=== PATIENT | male | born 1975 | race Hispanic/Latino ===

== ENCOUNTER 2020-09-14 12:47 | Inpatient (IN) | payer SELFPAY ==
[2020-09-14] MEDS ORDERED: METHYLPREDNISOLONE 125 MG INJ ONE (13:55)
[2020-09-14] MEDS ORDERED: NA CHLORIDE 0.9% 1,000 ML ONE (13:55)
[2020-09-14 14:39] LABS: Absolute Lymphocytes (CBC) 0.7 K/uL (0.7-4.9); Basophils % 0.3 % (0-1.3); Hematocrit 46.3 % (39.6-49.0); Lymphocytes % 15.3 % (15.3-44.8); MPV 9.8 fL (7.6-11.3); RBC Red Blood Cell Count 5.32 M/uL (4.33-5.43)
[2020-09-14 14:42] LABS: Protime INR 1.15
[2020-09-14 14:59] LABS: ALT/SGPT 48 U/L (12-78); AST/SGOT 35 U/L (15-37); Albumin 2.9 g/dL (3.4-5.0); Alkaline Phosphatase 58 U/L (45-117); BUN Blood Urea Nitrogen 12 mg/dL (7-18); Bicarbonate 22 mmol/L (21-32); Bilirubin Direct 0.3 mg/dL (0-0.2); Bilirubin Total 0.7 mg/dL (0.2-1.0); Ferritin 948.7 ng/mL (26-388); Glucose Level 197 mg/dL (74-106); Lipase 127 U/L (73-393); Potassium 3.7 mmol/L (3.5-5.1); Protein, Total 7.7 g/dL (6.4-8.2); Sodium Level 134 mmol/L (136-145); Troponin (Emerg Dept Use Only) < 0.02 ng/mL (0.0-0.045)
--- NOTE | 2020-09-14 15:03 | RAD REPORT ---
EXAM DESCRIPTION: RAD - Chest Single View - 09/14/2020 2:09 pm CLINICAL HISTORY: DYSPNEA Chest pain. COMPARISON: No comparisons FINDINGS: Portable technique limits examination quality. The lungs are underinflated with atelectasis in both lung bases. Mild linear opacities are probably a lso present bilaterally. The heart is normal in size. No displaced fractures. IMPRESSION: Underinflated lungs.
--- NOTE | 2020-09-14 15:50 | RAD REPORT ---
EXAM DESCRIPTION: CT - Chest For Pe Angio - 09/14/2020 3:39 pm CLINICAL HISTORY: Chest pain. DYSPNEA COMPARISON: <Comparisons> TECHNIQUE: CT angiogram of the pulmonary arteries was performed with MIP. All CT scans are performed using dose optimization technique as appropriate and may include automated exposure control or mA/KV adjustment according to patient size. FINDINGS: No evidence of pulmonary thromboembolism. No acute aortic finding demonstrated. Bilateral ground-glass and alveolar opacities are present throughout both lungs, greatest in the post erior lung bases. No significant pericardial or pleural fluid. No concerning bony finding. Advanced fatty liver. IMPRESSION: No evidence of pulmonary thromboembolism. Multifocal bilateral infiltrate pattern, greatest in the posterior gutters. This likely indicates pul monary infection.
--- NOTE | 2020-09-14 16:25 | ER ---
Nurse's Notes [facility] Name: Ritesh West Age: 45 yrs Sex: Male : 1975 Arrival Date: 09/14/2020 Time: 12:49 Bed 16 Private MD: Diagnosis: Hypoxia;Viral pneumonia, unspecified Presentation: 09/14 13:08 Chief complaint: Patient states: Onset 09/08/2020. Feels weak, cough, congestion, no ca1 appetite, diarrhea, body aches. Denies fever. SOB started 2 days [employer] READ[employer], getting worse. Coronavirus screen: Client denies travel out of the [place] in the last 14 days. congestion, cough unrelated to allergies, diarrhea, fatigue, Client presents with at least one sign or symptom that may indicate coronavirus-19. Standard/surgical mask placed on the client. Provider contacted for isolation considerations. Client reports previous positive COVID test result. Date of collection: September 13, 2020 Staff notified of need for isolation. Ebola Screen: Patient negative for fever greater than or equal to 101.5 degrees Fahrenheit, and additional compatible Ebola Virus Disease symptoms Patient denies exposure to infectious person. Patient denies travel to an Ebola-affected area in the 21 days before illness onset. No symptoms or risks identified at this time. Initial Sepsis Screen: Does the patient meet any 2 criteria? No. Patient's initial sepsis screen is negative. Does the patient have a suspected source of infection? No. Patient's initial sepsis screen is negative. Risk Assessment: Do you want to hurt yourself or someone else? Patient reports no desire to harm self or others. Onset of symptoms was September 08, 2020. 13:08 Method Of Arrival: Ambulatory ca1 13:08 Acuity: MIGUEL 2 ca1 Historical: - Allergies: 13:12 No Known Allergies; ca1 - Home Meds: 13:12 Metformin Oral [Active]; ca1 - PMHx: 13:12 Diabetes - NIDDM; ca1 - PSHx: 13:12 None; ca1 - Immunization history:: Flu vaccine is not up to date. - Social history:: Smoking status: Patient reports the use of cigarette tobacco products, denies chronic smoking, but will smoke occasionally. Screenin:03 Abuse screen: Denies threats or abuse. Denies injuries from another. Nutritional zb screening: No deficits noted. Tuberculosis screening: No symptoms or risk factors identified. Fall Risk None identified. Assessment: 14:00 General: Appears in no apparent distress. uncomfortable, Behavior is calm, cooperative, zb appropriate for age, Reports fever for > 3 days, feeling ill for > 3 days, fatigue for >3 days. Pain: Denies pain. Neuro: Level of Consciousness is awake, alert, obeys commands, Oriented to person, place, time, situation. Cardiovascular: Capillary refill < 3 seconds in bilateral fingers Patient's skin is warm and dry. Respiratory: Airway is patent Respiratory effort is labored, shallow, Respiratory pattern is tachypnea. Respiratory: Reports shortness of breath at rest cough that is dry, persistent Breath sounds with crackles in left posterior lower lobe and right posterior lower lobe Breath sounds are diminished in left posterior upper lobe, right posterior upper lobe, left posterior lower lobe and right posterior middle lobe Onset: The symptoms/episode began/occurred x 4 days , the patient has moderate shortness of breath. GI: Abdomen is obese, Bowel sounds present X 4 quads. : No signs and/or symptoms were reported regarding the genitourinary system. EENT: No signs and/or symptoms were reported regarding the EENT system. Derm: Skin is intact, is healthy with good turgor, Skin is dry, Skin is normal, Skin temperature is warm. Musculoskeletal: Range of motion:. 15:00 Reassessment: Patient appears in no apparent distress at this time. Patient and/or zb family updated on plan of care and expected duration. Pain level reassessed. Patient is alert, oriented x 3, equal unlabored respirations, skin warm/dry/pink. patient states he is still having moments of SOB. patient appears to be doing a little better. 15:26 Reassessment: pt taken to CT. zb 16:00 Reassessment: Patient appears in no apparent distress at this time. Patient and/or zb family updated on plan of care and expected duration. Pain level reassessed. no changes at this time. 17:16 Reassessment: Patient appears in no apparent distress at this time. Patient and/or zb family updated on plan of care and expected duration. Pain level reassessed. notified patient that he is getting admitted up stairs. Vital Signs: 13:08 BP 140 / 66; Pulse 136; Resp 18 S; Temp 98.4(TE); Pulse Ox 93% on R/A; Weight 131.54 kg ca1 (R); Height 5 ft. 10 in. (177.80 cm) (R); Pain 10/10; 14:02 BP 141 / 78; Pulse 122; Resp 23; Pulse Ox 91% on 2 lpm NC; Pain 0/10; zb 15:13 BP 129 / 65; Pulse 115; Resp 20; Pulse Ox 94% on 2 lpm NC; zb 16:45 Pulse 108; Resp 25; Pulse Ox 94% 2 lpm ; zb 17:16 BP 107 / 73; Pulse 110; Resp 26; Pulse Ox 94% 2 lpm ; zb 13:08 Body Mass Index 41.61 (131.54 kg, 177.80 cm) ca1 ED Course: 12:49 Patient arrived in ED. as 13:12 Triage completed. ca1 13:12 Arm band placed on right wrist. ca1 13:24 Cathryn Sung FNP-C is PHCP. kb 13:24 Alexandr Allen MD is Attending Physician. kb 13:35 Taryn Franz, DEIDRA is Primary Nurse. zb 14:03 Inserted saline lock: 20 gauge in right antecubital area, using aseptic technique. zb Blood collected. 14:06 CXR XRAY In Process Unspecified. EDMS 15:39 CT Chest For PE Angio In Process Unspecified. EDMS 16:23 Ross Nguyen MD is Hospitalizing Provider. kb 17:32 No provider procedures requiring assistance completed. Patient admitted, IV remains in zb place. 17:33 Patient has correct armband on for positive identification. Placed in gown. Bed in low zb position. Administered Medications: 14:00 Drug: SOLU-Medrol 125 mg Route: IVP; Site: left antecubital; zb 14:30 Follow up: Response: No adverse reaction; Marked relief of symptoms zb 14:00 Drug: NS 0.9% 1000 ml Route: IV; Rate: 1000 ml; Site: left antecubital; zb 23:58 Follow up: Response: No adverse reaction; Marked relief of symptoms; IV Status: zb Completed infusion; IV Intake: 1500ml Intake: 23:58 IV: 1500ml; Total: 1500ml. zb Outcome: 16:23 Decision to Hospitalize by Provider. kb 17:32 Admitted to Med/surg accompanied by tech, via stretcher, room 409, Report called to dorita GIBSON. DEIDRA 17:32 Condition: stable 17:32 Instructed on the need for admit, Demonstrated understanding of instructions, follow-up care. 18:34 Patient left the ED. dorita Signatures: Dispatcher [employer] EDMS Cathryn Sung, TEGAN-David JAVED-Pauline Gaston as Sully, Roseanne, RN Taryn Mir RN RN zb
--- NOTE | 2020-09-14 16:25 | EDPHYS ---
Physician Documentation [facility] Name: Ritesh West Age: 45 yrs Sex: Male : 1975 Arrival Date: 09/14/2020 Time: 12:49 Bed 16 Private MD: ED Physician Alexandr Allen HPI: 09/14 16:02 This 45 yrs old Male presents to ER via Ambulatory with complaints of kb Decreased Appetite, Diarrhea, Abdominal Cramping, Shortness Of Breath - covid+. 16:02 The patient or guardian reports cough, that is intermittent, described as moderate, kb difficulty breathing, flu symptoms, myalgias, no appetite. Onset: The symptoms/episode began/occurred 5 day(s) ago. Severity of symptoms: At their worst the symptoms were moderate, in the emergency department the symptoms are unchanged. Modifying factors: The symptoms are alleviated by nothing, the symptoms are aggravated by exertion. Associated signs and symptoms: Pertinent positives: diarrhea. The patient has not experienced similar symptoms in the past. The patient has not recently seen a physician. Pt tested positive for covid yesterday. Has been having symptoms for 5 days. Bodyaches, shortness of breath, cough, diarrhea. Dyspnea getting worse. Historical: - Allergies: 13:12 No Known Allergies; ca1 - Home Meds: 13:12 Metformin Oral [Active]; ca1 - PMHx: 13:12 Diabetes - NIDDM; ca1 - PSHx: 13:12 None; ca1 - Immunization history:: Flu vaccine is not up to date. - Social history:: Smoking status: Patient reports the use of cigarette tobacco products, denies chronic smoking, but will smoke occasionally. ROS: 14:40 Cardiovascular: Negative for chest pain, palpitations, and edema, Back: Negative for kb injury and pain, MS/Extremity: Negative for injury and deformity, Skin: Negative for injury, rash, and discoloration. 14:40 Constitutional: Positive for body aches, fatigue, malaise. 14:40 Respiratory: Positive for cough, dyspnea on exertion, shortness of breath. 14:40 Abdomen/GI: Positive for diarrhea. 14:40 Neuro: Positive for headache. Exam: 13:30 Constitutional: This is a well developed, well nourished patient who is awake, alert, kb and in no acute distress. Head/Face: Normocephalic, atraumatic. Abdomen/GI: Soft, non-tender. No distention Skin: Warm, dry with normal turgor. Normal color. MS/ Extremity: Pulses equal, no cyanosis. Neurovascular intact. Full, normal range of motion. Neuro: Awake and alert, GCS 15, oriented to person, place, time, and situation. Moves all extremities. Normal gait. 13:30 Cardiovascular: Rate: tachycardic, Rhythm: regular, Pulses: no pulse deficits are appreciated, Heart sounds: normal. 13:30 ECG was reviewed by the Attending Physician. 13:30 Respiratory: mild respiratory distress is noted, Respirations: labored breathing, that is mild, Breath sounds: are clear throughout. Vital Signs: 13:08 BP 140 / 66; Pulse 136; Resp 18 S; Temp 98.4(TE); Pulse Ox 93% on R/A; Weight 131.54 kg ca1 (R); Height 5 ft. 10 in. (177.80 cm) (R); Pain 10/10; 14:02 BP 141 / 78; Pulse 122; Resp 23; Pulse Ox 91% on 2 lpm NC; Pain 0/10; zb 15:13 BP 129 / 65; Pulse 115; Resp 20; Pulse Ox 94% on 2 lpm NC; zb 16:45 Pulse 108; Resp 25; Pulse Ox 94% 2 lpm ; zb 17:16 BP 107 / 73; Pulse 110; Resp 26; Pulse Ox 94% 2 lpm ; zb 13:08 Body Mass Index 41.61 (131.54 kg, 177.80 cm) ca1 MDM: 13:24 Patient medically screened. kb 14:52 Data reviewed: vital signs, nurses notes. Data interpreted: Pulse oximetry: on room air kb is 92 %. Interpretation: borderline. 16:01 Counseling: I had a detailed discussion with the patient and/or guardian regarding: the kb historical points, exam findings, and any diagnostic results supporting the discharge/admit diagnosis, lab results, radiology results, the need for further work-up and treatment in the hospital. Physician consultation: Ross Nguyen MD was contacted at 16:02, regarding admission, to the medical/surgical unit. patient's condition, and will see patient in ED, shortly. ED course: Pt oxygen sat 88-91% on room air, 95% on 2L with decreased work of breathing. 09/14 13:30 Order name: Blood Culture Adult (2) kb 09/14 13:30 Order name: BMP kb 09/14 13:30 Order name: C-Reactive Protein kb 09/14 13:30 Order name: CBC with Diff kb 09/14 13:30 Order name: D-Dimer kb 09/14 13:30 Order name: Ferritin; Complete Time: 15:01 kb 09/14 13:30 Order name: Lactate; Complete Time: 15:01 kb 09/14 13:30 Order name: LFT's; Complete Time: 15:01 kb 09/14 13:30 Order name: Lipase; Complete Time: 15:01 kb 09/14 13:30 Order name: Procalcitonin; Complete Time: 14:54 kb 09/14 13:30 Order name: PT-INR; Complete Time: 14:56 kb 09/14 13:30 Order name: Ptt, Activated; Complete Time: 14:56 kb 09/14 13:30 Order name: Troponin (emerg Dept Use Only); Complete Time: 15:01 kb 09/14 13:31 Order name: Blood Culture EDMS 09/14 13:30 Order name: CXR XRAY; Complete Time: 15:05 kb 09/14 13:30 Order name: EKG; Complete Time: 13:31 kb 09/14 13:30 Order name: Cardiac monitoring; Complete Time: 14:32 kb 09/14 13:30 Order name: Droplet/Contact Precautions; Complete Time: 13:35 kb 09/14 13:30 Order name: EKG - Nurse/Tech; Complete Time: 14:25 kb 09/14 13:30 Order name: IV Start; Complete Time: 14:02 kb 09/14 13:30 Order name: Labs collected and sent; Complete Time: 14:02 kb 09/14 13:30 Order name: O2 Per Protocol; Complete Time: 14:02 kb 09/14 13:31 Order name: Basic Metabolic Panel; Complete Time: 15:01 EDMS 09/14 13:31 Order name: C-Reactive Protein; Complete Time: 15:01 EDMS 09/14 13:31 Order name: CBC with Automated Diff; Complete Time: 14:54 EDMS 09/14 13:31 Order name: D-Dimer; Complete Time: 14:56 EDMS 09/14 14:54 Order name: CT Chest For PE Angio; Complete Time: 15:57 kb 09/14 16:53 Order name: CONS Physician Consult EDRI 09/14 13:30 Order name: O2 Sat Monitoring; Complete Time: 14:02 kb EC:30 Rate is 124 beats/min. Rhythm is regular. QRS [place] is Normal. [place] interval is normal at kb 146 msec. QRS interval is normal at 76 msec. QT interval is normal at 302 msec. Administered Medications: 14:00 Drug: SOLU-Medrol 125 mg Route: IVP; Site: left antecubital; zb 14:30 Follow up: Response: No adverse reaction; Marked relief of symptoms zb 14:00 Drug: NS 0.9% 1000 ml Route: IV; Rate: 1000 ml; Site: left antecubital; zb 23:58 Follow up: Response: No adverse reaction; Marked relief of symptoms; IV Status: zb Completed infusion; IV Intake: 1500ml Disposition: 09/15 01:16 Co-signature as Attending Physician, Alexandr Allen MD I agree with the assessment and [facility] plan of care. Disposition: 09/14/20 16:23 Hospitalization ordered by Ross Nguyen for Observation. Preliminary diagnosis are Hypoxia, Viral pneumonia, unspecified. - Bed requested for Telemetry/MedSurg (observation). - Status is Observation. zb - Condition is Stable. - Problem is new. - Symptoms are unchanged. Signatures: Dispatcher [employer] EDRI Cathryn Sung, LETTER SORTING MACHINE OPERATOR-C LETTER SORTING MACHINE OPERATOR-Ckb Alexandr Allen MD MD cha Botello, Elizabeth Roseanne Virk RN RN ca1 Brown, Zipporah, RN RN zb Corrections: (The following items were deleted from the chart) 09/14 17:09 16:23 Hospitalization Ordered by Ross Nguyen MD for Observation. Preliminary eb diagnosis is Hypoxia; Viral pneumonia, unspecified. Bed requested for Telemetry/MedSurg (observation). Status is Observation. Condition is Stable. Problem is new. Symptoms are unchanged. kb 18:34 17:09 09/14/2020 16:23 Hospitalization Ordered by Ross Nguyen MD for Observation. zb Preliminary diagnosis is Hypoxia; Viral pneumonia, unspecified. Bed requested for Telemetry/MedSurg (observation). Status is Observation. Condition is Stable. Problem is new. Symptoms are unchanged. eb
--- NOTE | 2020-09-14 17:04 | P.HP ---
Certification for Inpatient Patient admitted to: Inpatient With expected LOS: >2 Midnights Practitioner: I am a practitioner with admitting privileges, knowledge of patient current condition, hospital course, and medical plan of care. Services: Services provided to patient in accordance with Admission requirements found in Title 42 Section 412.3 of the Code of Federal Regulations Patient History Date of Service: 09/14/20 Reason for admission: Hypoxia, COVID-19 pneumonia History of Present Illness: 45yo M, PMH: NIDDM2, presents with 5 days of progressively worsening SOB. Tested positive for COVID-19 yesterday. Associated with anorexia, diarrhea, nausea. Denies chest pain, no fever/chills, no lower extremity edema, no rash. multiple family members recently tested positive as well. In the ED, he was noted to be hypoxic to 80s on room air, tachypneic, tachycardic, and given steroids. Found to have elevated CRP, ferritin, and d-dimer. CT consistent with COVID pneumonia. Allergies No Known Allergies Allergy (Unverified 12/16/11 13:58) - Past Medical/Surgical History -: NIDDM2 Past Surgical History: Patient denies surgical history - Family History Mother -: Diabetes - Social History Smoking Status: Current some day smoker Place of Residence: Home Review of Systems 10-point ROS is otherwise unremarkable Physical Examination - Studies Laboratory Data (last 24 hrs) 09/14/20 13:56: PT 13.3 H, INR 1.15, APTT 28.2 09/14/20 13:56: WBC 4.40, Hgb 16.0, Hct 46.3, Plt Count 129 L 09/14/20 13:56: Sodium 134 L, Potassium 3.7, BUN 12, Creatinine 0.82, Glucose 197 H, Total Bilirubin 0.7, AST 35, ALT 48, Alkaline Phosphatase 58, Lipase 127 Assessment and Plan - Advance Directives Does patient have a Living Will: No Does patient have a Durable POA for Healthcare: No Physician Review Additional Text: Physical Exam: Gen: mild distress HEENT: normal conjunctiva, sclera anicteric CV: sinus tachycardia, no murmur Pulm: bilateral crackles at bases, diminished air entry, on 3L NC, mild labored, shallow respirations Abd: soft, NTND Ext: no edema, no rash Neuro: AAOx3, moves all extremities Problem List: Acute hypoxemic respiratory failure secondary to COVID-19 pneumonia NIDDM2 -admit, wean o2 as needed -IV steroids, vitamin supplementation -lovenox for VTE prophylaxis -insulin sliding scale, will likely need long-acting, check A1c -pulm consulted -daily RA sats VTE: lovenox Code: full Dispo: anticipate dc home in ~2 days, will likely need home O2 Time Spent Managing Pts Care (In Minutes): 60
[2020-09-14] MEDS ORDERED: ONDANSETRON 4 MG/2 ML VIAL IV PRN (20:10)
[2020-09-14] MEDS ORDERED: GLUCAGON 1 MG/VIAL IM PRN (20:10)
[2020-09-14] MEDS ORDERED: D50W 25 GM/50 ML SYRINGE IV PRN (20:10)
[2020-09-14] MEDS ORDERED: FAMOTIDINE 20 MG/2 ML VIAL IV SCH (21:00)
[2020-09-14] MEDS: INSULIN -REGULAR HUMAN 50 UNIT/0.5 ML ML SQ SCH (22:21)
[2020-09-14] MEDS: METHYLPREDNISOLONE 40 MG INJ IV SCH (22:21)
[2020-09-14] MEDS ORDERED: ACETAMINOPHEN 500 MG TAB PO PRN (22:34)
[2020-09-14] MEDS: BENZONATATE 100 MG CAP PO PRN (23:10)
[2020-09-15 03:04] VITALS: BMI 41.5
[2020-09-15 06:54] LABS: Absolute Lymphocytes (CBC) 0.8 K/uL (0.7-4.9); Basophils % 0.2 % (0-1.3); Hematocrit 43.8 % (39.6-49.0); MPV 9.6 fL (7.6-11.3); RBC Red Blood Cell Count 5.03 M/uL (4.33-5.43)
[2020-09-15] MEDS: FAMOTIDINE 20 MG TAB PO SCH ×2 (08:12→21:46)
[2020-09-15] MEDS: VITAMIN D 1000 UNIT TAB PO SCH (08:14)
[2020-09-15] MEDS: METHYLPREDNISOLONE 40 MG INJ IV SCH ×2 (08:15→21:46)
[2020-09-15] MEDS: ASCORBIC ACID 500 MG TABLET PO SCH ×4 (08:16→21:46)
[2020-09-15] MEDS: INSULIN -REGULAR HUMAN 50 UNIT/0.5 ML ML SQ SCH ×4 (08:17→21:45)
[2020-09-15] MEDS: ZINC SULFATE 220 MG CAP PO SCH (08:19)
[2020-09-15] MEDS: THIAMINE 200 MG/2 ML INJ IVP SCH ×2 (08:19→21:46)
[2020-09-15 08:49] LABS: ALT/SGPT 47 U/L (12-78); AST/SGOT 31 U/L (15-37); Albumin 2.8 g/dL (3.4-5.0); Alkaline Phosphatase 57 U/L (45-117); BUN Blood Urea Nitrogen 14 mg/dL (7-18); Bicarbonate 20 mmol/L (21-32); Bilirubin Total 0.6 mg/dL (0.2-1.0); Ferritin 908.2 ng/mL (26-388); Glucose Level 222 mg/dL (74-106); Magnesium 2.3 mg/dL (1.8-2.4); Potassium 4.1 mmol/L (3.5-5.1); Protein, Total 7.4 g/dL (6.4-8.2); Sodium Level 138 mmol/L (136-145)
[2020-09-15] MEDS ORDERED: ZINC SULFATE 220 MG CAP PO SCH (09:00)
[2020-09-15] MEDS ORDERED: ENOXAPARIN 40 MG/0.4 ML SQ SCH ×2 (09:00→21:00)
--- NOTE | 2020-09-15 12:15 | P.CNS ---
Date of Consult: 09/15/20 Reason for Consult: The a from downey virus Chief Complaint: Hypoxia, COVID-19 pneumonia History of Present Illness: Patient is 45 years of age has been sick for about a week admitted to the hospital with progressive dyspnea as so she was anorexia diarrhea eyes any fever and chills he just felt that currently stable Allergies No Known Allergies Allergy (Verified 09/15/20 03:12) Home Medications: Metformin ER [Glucophage ER*] 1,000 mg PO DAILY 09/15/20 - Past Medical/Surgical History Diabetic: Yes -: NIDDM2 - Family History Mother Medical History: Diabetes - Social History Smoking Status: Current some day smoker Alcohol use: Yes CD- Drugs: No Caffeine use: Yes Place of Residence: Home Review of Systems General: Weakness Respiratory: Cough, Shortness of Breath Physical Examination Temp Pulse Resp BP Pulse Ox 97.4 F 84 24 H 132/79 93 09/15/20 08:00 09/15/20 08:00 09/15/20 08:00 09/15/20 08:00 09/15/20 08:00 Laboratory Data (last 24 hrs) 09/14/20 13:56: PT 13.3 H, INR 1.15, APTT 28.2 09/14/20 13:56: WBC 4.40, Hgb 16.0, Hct 46.3, Plt Count 129 L 09/14/20 13:56: Sodium 134 L, Potassium 3.7, BUN 12, Creatinine 0.82, Glucose 197 H, Total Bilirubin 0.7, AST 35, ALT 48, Alkaline Phosphatase 58, Lipase 127 - Problems (1) Acute respiratory failure due to severe acute respiratory syndrome coronavirus 2 (SARS-CoV-2) infection Current Visit: Yes Status: Acute Plan: Patient is 45 years of age admitted with respiratory failure from downey virus an is a little hypoxic on 3 L of nasal cannula oxygen diminished lung volumes agrees little elevate increase Lovenox to 40 b.i.d. she is stable
[2020-09-15] MEDS ORDERED: Remdesivir 200 MG in NA CHLORIDE 0.9% 250 ML IV ONE (14:00)
[2020-09-15] MEDS ORDERED: D50W 25 GM/50 ML VIAL IV PRN (14:00)
[2020-09-15] MEDS: BENZONATATE 100 MG CAP PO PRN (14:57)
--- NOTE | 2020-09-15 15:23 | P.PN ---
Subjective Date of Service: 09/15/20 Chief Complaint: Hypoxia, COVID-19 pneumonia Subjective: No new changes (Reports he feels about the same as yesterday. Dyspnea on exertion, fatigue, low appetite.) Review of Systems 10-point ROS is otherwise unremarkable Physical Examination - Vital Signs Temperature: 98 F Blood Pressure: 131/85 Pulse: 78 Respirations: 26 Pulse Ox (%): 93 Assessment & Plan Physician Review Additional Text: Physical Exam: Gen: NAD HEENT: normal conjunctiva, sclera anicteric CV: sinus tachycardia, no murmur Pulm: bilateral crackles at bases, diminished air entry, on 2L NC, shallow respirations Abd: soft, NTND Ext: no edema, no rash Neuro: AAOx3, moves all extremities Problem List: Acute hypoxemic respiratory failure secondary to COVID-19 pneumonia NIDDM2 -wean o2 as needed -IV steroids, vitamin supplementation -lovenox for VTE prophylaxis -insulin sliding scale, will likely need long-acting, check A1c -pulm consulted, started remdesevir -daily RA sats -ferritin CRP elevated, very mild improvement VTE: lovenox Code: full Dispo: anticipate dc home in 24-48hrs, will need home O2 Time Spent Managing Pts Care (In Minutes): 35
[2020-09-15] MEDS ORDERED: PNEUMOCOCCAL VACCINE 0.5 ML IMVAC ONE (18:00)
[2020-09-15] MEDS ORDERED: INFLUENZA VACCINE (for 3y+) 0.5 ML DOSE IMVAC ONE (18:00)
[2020-09-15] MEDS ORDERED: D50W 25 GM/50 ML SYRINGE IV PRN (22:27)
[2020-09-16] MEDS: BENZONATATE 100 MG CAP PO PRN ×2 (00:12→08:01)
[2020-09-16 03:54] LABS: Absolute Lymphocytes (CBC) 0.7 K/uL (0.7-4.9); Hematocrit 43.6 % (39.6-49.0); Lymphocytes % 11.2 % (15.3-44.8); MPV 9.6 fL (7.6-11.3); RBC Red Blood Cell Count 5.03 M/uL (4.33-5.43)
[2020-09-16 04:24] LABS: ALT/SGPT 39 U/L (12-78); AST/SGOT 22 U/L (15-37); Albumin 2.8 g/dL (3.4-5.0); Alkaline Phosphatase 59 U/L (45-117); BUN Blood Urea Nitrogen 17 mg/dL (7-18); Bicarbonate 28 mmol/L (21-32); Bilirubin Total 0.5 mg/dL (0.2-1.0); Ferritin 889.7 ng/mL (26-388); Glucose Level 226 mg/dL (74-106); Magnesium 2.5 mg/dL (1.8-2.4); Potassium 4.3 mmol/L (3.5-5.1); Protein, Total 7.4 g/dL (6.4-8.2); Sodium Level 140 mmol/L (136-145)
[2020-09-16] MEDS: ASCORBIC ACID 500 MG TABLET PO SCH ×4 (08:03→20:36)
[2020-09-16] MEDS: FAMOTIDINE 20 MG TAB PO SCH ×2 (08:04→20:35)
[2020-09-16] MEDS: ZINC SULFATE 220 MG CAP PO SCH (08:05)
[2020-09-16] MEDS: VITAMIN D 1000 UNIT TAB PO SCH (08:05)
[2020-09-16] MEDS: METHYLPREDNISOLONE 40 MG INJ IV SCH ×2 (08:06→20:35)
[2020-09-16] MEDS: INSULIN -REGULAR HUMAN 50 UNIT/0.5 ML ML SQ SCH ×4 (08:07→20:36)
[2020-09-16] MEDS: INSULIN 70/30 100 UNITS/ML SQ SCH ×2 (08:07→16:00)
[2020-09-16] MEDS: APIXABAN 5 MG TABLET PO SCH ×2 (08:08→20:36)
[2020-09-16] MEDS: THIAMINE 200 MG/2 ML INJ IVP SCH ×2 (08:13→20:36)
[2020-09-16] MEDS: Remdesivir 100 MG in NA CHLORIDE 0.9% 250 ML IV SCH (09:15)
--- NOTE | 2020-09-16 16:59 | P.PN ---
Subjective Date of Service: 09/16/20 Chief Complaint: Hypoxia, COVID-19 pneumonia Subjective: Worsening (Hypoxia worsened, now requiring 4 L nasal cannula, with dyspnea on exertion, appetite slightly improved) Review of Systems 10-point ROS is otherwise unremarkable Physical Examination - Vital Signs Temperature: 96.4 F Blood Pressure: 124/87 Pulse: 83 Respirations: 20 Pulse Ox (%): 96 Assessment & Plan Physician Review Additional Text: Physical Exam: Gen: NAD HEENT: normal conjunctiva, sclera anicteric CV: Regular rate and rhythm, no murmur Pulm: bilateral crackles at bases, diminished air entry, on 4L NC, shallow respirations Abd: soft, NTND Ext: no edema, no rash Problem List: Acute hypoxemic respiratory failure secondary to COVID-19 pneumonia NIDDM2 -with steroid induced (worsening) hyperglycemia -wean o2 as needed -IV steroids, vitamin supplementation -eliquis -insulin sliding scale, long acting ordered, A1c >10, will likely need insulin on discharge -pulm consulted, continue remdesevir -daily RA sats -ferritin CRP elevated, very mild improvement VTE: eliquis Code: full Dispo: anticipate dc home in ~24, CM consulted for home O2 Given worsening of hypoxia will likely need to stay in the hospital today. Time Spent Managing Pts Care (In Minutes): 35
[2020-09-17 04:06] LABS: Absolute Lymphocytes (CBC) 0.7 K/uL (0.7-4.9); Hematocrit 42.5 % (39.6-49.0); Lymphocytes % 11.6 % (15.3-44.8); MPV 9.7 fL (7.6-11.3); RBC Red Blood Cell Count 4.82 M/uL (4.33-5.43)
[2020-09-17 04:23] LABS: ALT/SGPT 34 U/L (12-78); AST/SGOT 18 U/L (15-37); Albumin 2.7 g/dL (3.4-5.0); Alkaline Phosphatase 55 U/L (45-117); BUN Blood Urea Nitrogen 17 mg/dL (7-18); Bicarbonate 31 mmol/L (21-32); Bilirubin Total 0.4 mg/dL (0.2-1.0); Ferritin 813.3 ng/mL (26-388); Glucose Level 240 mg/dL (74-106); Magnesium 2.6 mg/dL (1.8-2.4); Potassium 4.2 mmol/L (3.5-5.1); Protein, Total 6.8 g/dL (6.4-8.2); Sodium Level 140 mmol/L (136-145)
[2020-09-17] MEDS: VITAMIN D 1000 UNIT TAB PO SCH (08:53)
[2020-09-17] MEDS: THIAMINE 200 MG/2 ML INJ IVP SCH ×2 (08:53→21:51)
[2020-09-17] MEDS: METHYLPREDNISOLONE 40 MG INJ IV SCH ×2 (08:53→21:52)
[2020-09-17] MEDS: ZINC SULFATE 220 MG CAP PO SCH (08:54)
[2020-09-17] MEDS: FAMOTIDINE 20 MG TAB PO SCH ×2 (08:54→21:53)
[2020-09-17] MEDS: ASCORBIC ACID 500 MG TABLET PO SCH ×4 (08:54→21:53)
[2020-09-17] MEDS: APIXABAN 5 MG TABLET PO SCH ×2 (08:54→21:53)
[2020-09-17] MEDS: INSULIN -REGULAR HUMAN 50 UNIT/0.5 ML ML SQ SCH ×4 (08:54→21:53)
[2020-09-17] MEDS: INSULIN 70/30 100 UNITS/ML SQ SCH ×2 (08:55→16:30)
[2020-09-17] MEDS: Remdesivir 100 MG in NA CHLORIDE 0.9% 250 ML IV SCH (09:06)
[2020-09-18] MEDS: ZINC SULFATE 220 MG CAP PO SCH (08:40)
[2020-09-18] MEDS: VITAMIN D 1000 UNIT TAB PO SCH (08:41)
[2020-09-18] MEDS: APIXABAN 5 MG TABLET PO SCH (08:41)
[2020-09-18] MEDS: METHYLPREDNISOLONE 40 MG INJ IV SCH (08:41)
[2020-09-18] MEDS: INSULIN -REGULAR HUMAN 50 UNIT/0.5 ML ML SQ SCH ×3 (08:41→16:37)
[2020-09-18] MEDS: ASCORBIC ACID 500 MG TABLET PO SCH ×3 (08:41→16:38)
[2020-09-18] MEDS: THIAMINE 200 MG/2 ML INJ IVP SCH (08:41)
[2020-09-18] MEDS: FAMOTIDINE 20 MG TAB PO SCH (08:41)
[2020-09-18] MEDS: INSULIN 70/30 100 UNITS/ML SQ SCH ×2 (08:42→16:38)
[2020-09-18] MEDS: Remdesivir 100 MG in NA CHLORIDE 0.9% 250 ML IV SCH (09:32)
--- NOTE | 2020-09-18 12:37 | P.PN ---
Subjective Date of Service: 09/18/20 Chief Complaint: Hypoxia, COVID-19 pneumonia Subjective: Improving (Patient is doing much better stable on 4 L of nasal cannula oxygen) Review of Systems General: Weakness Respiratory: Shortness of Breath Physical Examination - Vital Signs Temperature: 96.9 F Blood Pressure: 118/76 Pulse: 84 Respirations: 20 Pulse Ox (%): 90 Assessment & Plan - Problems (Diagnosis) (1) Acute respiratory failure due to severe acute respiratory syndrome coronavirus 2 (SARS-CoV-2) infection Current Visit: Yes Status: Acute Plan: Patient admitted with coronavirus pneumonia is much better plan to discharge him on but is on 20 mg twice a day for a week blood sugars are elevated given him another dose of ivermectin Discharge Plan: Home Plan to discharge in: 24 Hours
[2020-09-18] MEDS ORDERED: IVERMECTIN 3 MG TABLET PO ONE (12:45)
[2020-09-18 16:02] VITALS: O2SAT 95
[2020-09-18 16:54] VITALS: BP 120/72; TEMP 96.8
--- NOTE | 2020-09-18 16:58 | P.DS ---
Admission Date: 09/14/20 Discharge Date: 09/18/20 Disposition: ROUTINE DISCHARGE Discharge Condition: FAIR Reason for Admission: Hypoxia, COVID-19 pneumonia Consultations: Pulmonary-Dr. Kaplan Brief History of Present Illness: 45-year-old gentleman with a history of [id number] diabetes presented to the emergency department with a 5 day history of progressive shortness of breath and cough. Patient tested positive for COVID 19 the day before presentation. He reported multiple family members tested positive for the COVID 19. Chest x-ray done in the emergency department demonstrated findings suggestive of COVID pneumonia. Patient was saturating at 80% on room air. He was placed on oxygen by nasal cannula and admitted for further management. Hospital Course: Patient admitted to the medical floor and treated with IV steroids, vitamin D, vitamin-C and zinc supplementation. He was also given a dose of Ivermectin. Patient respiratory condition was stable on oxygen by nasal cannula. He was tolerating 2 L with good oxygen saturation. Patient deemed clinically stable for discharge. He is discharged with prednisone and vitamin supplementation. He will follow with Dr. Kaplan within 1 week. Vital Signs/Physical Exam: Temp Pulse Resp BP Pulse Ox 96.8 F 76 20 120/72 95 09/18/20 16:00 09/18/20 16:00 09/18/20 16:00 09/18/20 16:00 09/18/20 16:00 General: Alert, In no apparent distress Neck: Supple, JVD not distended Respiratory: Other (Nonlabored breathing.) Cardiovascular: No edema, Regular rate/rhythm, Normal S1 S2 Gastrointestinal: Soft and benign, Non-distended Musculoskeletal: No swelling Integumentary: No rashes Neurological: Normal strength at 5/5 x4 extr Laboratory Data at Discharge: WBC 6.20 K/uL (4.3-10.9) 09/17/20 03:11 Hgb 14.7 g/dL (13.6-17.9) 09/17/20 03:11 Hct 42.5 % (39.6-49.0) 09/17/20 03:11 Plt Count 186 K/uL (152-406) 09/17/20 03:11 PT 13.3 SECONDS (9.5-12.5) H 09/14/20 13:56 INR 1.15 09/14/20 13:56 APTT 28.2 SECONDS (24.3-36.9) 09/14/20 13:56 Sodium 140 mmol/L (136-145) 09/17/20 03:11 Potassium 4.2 mmol/L (3.5-5.1) 09/17/20 03:11 BUN 17 mg/dL (7-18) 09/17/20 03:11 Creatinine 0.74 mg/dL (0.55-1.3) 09/17/20 03:11 Glucose 240 mg/dL (74-106) H 09/17/20 03:11 Magnesium 2.6 mg/dL (1.8-2.4) H 09/17/20 03:11 Total Bilirubin 0.4 mg/dL (0.2-1.0) 09/17/20 03:11 AST 18 U/L (15-37) 09/17/20 03:11 ALT 34 U/L (12-78) 09/17/20 03:11 Alkaline Phosphatase 55 U/L (45-117) 09/17/20 03:11 Lipase 127 U/L (73-393) 09/14/20 13:56 Home Medications: Metformin ER [Glucophage ER*] 1,000 mg PO DAILY 09/15/20 Alcohol Antiseptic Pads [Alcohol Prep Pads] 1 each TP TID #100 med..pad 09/18/20 Apixaban [Eliquis] 5 mg PO BID #60 tablet 09/18/20 Ascorbic Acid [Vitamin C*] 2,000 mg PO BID #240 tablet 09/18/20 Benzonatate [Tessalon Perle*] 100 mg PO TID PRN #30 cap 09/18/20 Blood Sugar Diagnostic [Glucose Test Strip] 1 each TID #100 strip 09/18/20 Blood-Glucose Meter [Contour] 1 each TID #1 kit 09/18/20 Cholecalciferol (Vitamin D3) [Vitamin D 1000 Iu Tab*] 4,000 unit PO DAILY #120 tab 09/18/20 Famotidine [Pepcid*] 40 mg PO BID #56 tab 09/18/20 Insulin 70/30 NPH/Reg Human [Novolin 70/30*] 25 unit SQ BIDAC #10 ml 09/18/20 Lancets [Lancets Ultra Thin] 1 each TID #100 each 09/18/20 Syringe,Needle,Insuln,Sf 0.5ML [Easy Touch Insulin Safety] 1 each MC TID #100 disp.syrin 09/18/20 Zinc Sulfate [Zinc Sulfate*] 220 mg PO DAILY #30 cap 09/18/20 predniSONE [Prednisone*] 20 mg PO DAILY #21 tab 09/18/20 New Medications: Alcohol Antiseptic Pads [Alcohol Prep Pads] 1 each TP TID #100 med..pad Blood-Glucose Meter [Contour] 1 each MC TID #1 kit Syringe,Needle,Insuln,Sf 0.5ML [Easy Touch Insulin Safety] 1 each MC TID #100 disp.syrin Apixaban [Eliquis] 5 mg PO BID #60 tablet Blood Sugar Diagnostic [Glucose Test Strip] 1 each MC TID #100 strip Lancets [Lancets Ultra Thin] 1 each MC TID #100 each Insulin 70/30 NPH/Reg Human [Novolin 70/30*] 25 unit SQ BIDAC #10 ml Famotidine [Pepcid*] 40 mg PO BID #56 tab predniSONE [Prednisone*] 20 mg PO DAILY #21 tab Benzonatate [Tessalon Perle*] 100 mg PO TID PRN #30 cap PRN Reason: Cough Ascorbic Acid [Vitamin C*] 2,000 mg PO BID #240 tablet Cholecalciferol (Vitamin D3) [Vitamin D 1000 Iu Tab*] 4,000 unit PO DAILY #120 tab Zinc Sulfate [Zinc Sulfate*] 220 mg PO DAILY #30 cap Diet: ADA Activity: Ad fredo Followup: NONE,NONE [Primary Care Provider] - Sukhjinder Kaplan MD [ACTIVE - CAN ADMIT] - 1 Week Time spent managing pt's care (in minutes): 37
[2020-09-18] MEDS ORDERED: D50W 25 GM/50 ML VIAL IV PRN (18:00)
--- NOTE | 2020-10-05 19:14 | P.PN ---
Subjective Date of Service: 09/17/20 Chief Complaint: Hypoxia, COVID-19 pneumonia No new changes from yesterday. Physical Examination - Vital Signs Temperature: 96.8 F Blood Pressure: 120/72 Pulse: 76 Respirations: 20 Pulse Ox (%): 95 - Physical Exam General: Alert, In no apparent distress Neck: JVD not distended Respiratory: Other (Nonlabored breathing) Cardiovascular: No edema, Regular rate/rhythm, Normal S1 S2 Gastrointestinal: Soft and benign, Non-distended Musculoskeletal: No swelling Integumentary: No rashes Neurological: Normal strength at 5/5 x4 extr Assessment And Plan Physician Review Additional Text: Problem List: Acute hypoxemic respiratory failure secondary to COVID-19 pneumonia NIDDM2 -with steroid induced (worsening) hyperglycemia -continue IV steroids, vitamin supplementation -eliquis -insulin sliding scale, long acting ordered, A1c >10. -pulm is following. continue remdesevir -weaned off oxygen as tolerated. VTE: eliquis Code: full
== END 2020-09-18 18:35 | disposition home or self-care (01) | DRG 177 ==
LOC: ER 12:47 → ERHOLD 16:52 → 4TH 17:50
PROVIDERS: ADMIT Hospitalist; ATTEND Internal Medicine
PROC: XW033E5 Introduction of Remdesivir Anti-infective into Peripheral Vein, Percutaneous Approach, New Technology Group 5 (ICD-10-PCS; principal; 2020-09-15)
DX: U07.1 COVID-19 (principal); J12.82 Pneumonia due to coronavirus disease 2019; J96.01 Acute respiratory failure with hypoxia; F17.210 Nicotine dependence, cigarettes, uncomplicated; T38.0X5A Adverse effect of glucocorticoids and synthetic analogues, initial encounter; E09.65 Drug or chemical induced diabetes mellitus with hyperglycemia; Z79.01 Long term (current) use of anticoagulants; Z79.4 Long term (current) use of insulin; Z79.52 Long term (current) use of systemic steroids; Z79.899 Other long term (current) drug therapy
CPT/HCPCS: 36415; 71045; 71275; 80048; 80053; 80076; 82728; 82947; 83036; 83605; 83690; 83735; 84145; 84484; 85025; 85379; 85610; 85730; 86140; 87040; 93005; 94760; 96361; 96374; 99285; J1650; J1815; J2920; J2930; J3411; J7030; J7050; Q9967